=== PATIENT | female | born 1965 | race Caucasian/White ===

== ENCOUNTER 2018-12-17 12:09 | Emergency (ER) | payer MEDICAID, OTHER ==
[~2018-12-17] VITALS: Wt 76.3 kg
[~2018-12-17 12:09] MED LIST: MECL12.574 PO
[2018-12-17] MEDS ORDERED: LORAZEPAM 2 MG INJ IV ONE (12:30)
[2018-12-17] MEDS ORDERED: MECLIZINE 12.5 MG TAB PO ONE (12:30)
[2018-12-17 14:03] VITALS: BP 119/81; PULSE 67; RESP 18
== END 2018-12-17 14:25 | disposition home or self-care (01) ==
LOC: E/R 12:09
DX: R42 Dizziness and giddiness (principal)
CPT/HCPCS: 36415; 70450; 71045; 80048; 80061; 83036; 84484; 85025; 85610; 85730; 93005; 96374; J2060; Z7502; Z7610